=== PATIENT | male | born 1960 | race African-American/Black ===

== ENCOUNTER 2021-03-17 16:59 | Inpatient (IN) | payer OTHER ==
[2021-03-17 17:28] VITALS: BMI 29.2
[2021-03-17] MEDS ORDERED: PANTOPRAZOLE SODIUM 40 MG VIAL IVPUSH ONE (18:26)
[2021-03-17] MEDS ORDERED: ONDANSETRON 4 MG/2 ML VIAL IVPUSH ONE (18:27)
[2021-03-17] MEDS ORDERED: SODIUM CHLORIDE 0.9% 500 ML INFUS.BAG IV ONE (18:27)
[2021-03-17] MEDS ORDERED: ONDANSETRON 4 MG/2 ML VIAL ONE (18:33)
[2021-03-17] MEDS ORDERED: PANTOPRAZOLE SODIUM 40 MG VIAL ONE (18:33)
[2021-03-17 18:56] LABS: BASO % 0.9 % (0-2.0); HEMOGLOBIN 14.6 GM/dL (11.7-16.9); LYMPH % 28.1 % (8-40); MCH 27.6 pg (25.7-33.7); MCHC 32.5 g/dl (32.0-35.9); MEAN CELL VOLUME 84.8 fl (80-96); MEAN PLT VOLUME 9.5 fl (7.5-11.1); MONO % 4.9 % (3.8-10.2); NEUT % 63.1 % (42.8-82.8); PLATELET COUNT 255 10^3/uL (134-434); RDW 13.5 % (11.9-15.9); WHITE BLOOD COUNT 5.7 K/mm3 (4.0-10.0)
[2021-03-17 18:57] LABS: CHLORIDE 108 mmol/L (98-107); SODIUM 143 mmol/L (136-145)
[2021-03-17 19:00] LABS: ALBUMIN 3.6 g/dl (3.4-5.0); ANION GAP 7 MMOL/L (8-16); BLOOD UREA NITROGEN 17.2 mg/dL (7-18); CO2 28 mmol/L (21-32); GLUCOSE,RANDOM 90 mg/dL (74-106); LIPASE 55 U/L (73-393); MAGNESIUM 2.3 mg/dL (1.8-2.4)
[2021-03-17 19:02] LABS: PROTHROMBIN TIME (PATIENT) 11.2 SEC (9.7-13.0)
[2021-03-17 19:03] LABS: CREATININE 1.4 mg/dL (0.55-1.3); SGOT/AST 19 U/L (15-37); SGPT/ALT 29 U/L (13-61)
[2021-03-17 19:04] LABS: BILIRUBIN,TOTAL 0.2 mg/dL (0.2-1); TOT PROT 7.8 g/dl (6.4-8.2)
[2021-03-17 19:05] LABS: ACTIVATED PTT 26.1 SECONDS (25.2-36.5)
[2021-03-17 19:06] LABS: ALK PHOS 71 U/L (45-117)
[2021-03-17] MEDS ORDERED: ONDANSETRON 4 MG/2 ML VIAL IVPUSH PRN (21:33)
[2021-03-17] MEDS ORDERED: ALBUTEROL SO4 2.5/IPRATROPIUM 0.5 INH SOL 3 ML VIAL.NEB. NEB PRN (21:53)
[2021-03-17] MEDS ORDERED: ATORVASTATIN CA 20 MG TABLET (FP) ONE (22:05)
[2021-03-17] MEDS: SODIUM CHLORIDE 1,000 ML IV SCH (22:11)
[2021-03-17] MEDS: ATORVASTATIN CA 20 MG TABLET (FP) PO SCH (22:11)
[2021-03-18 06:34] LABS: URINE APPEARANCE CLEAR; URINE BILIRUBIN NEGATIVE (NEGATIVE); URINE COLOR YELLOW; URINE GLUCOSE (UA) NEGATIVE (NEGATIVE); URINE KETONE NEGATIVE (NEGATIVE); URINE LEUK ESTERASE NEGATIVE (NEGATIVE); URINE NITRITE NEGATIVE (NEGATIVE); URINE PROTEIN NEGATIVE (NEGATIVE)
[2021-03-18 08:55] LABS: HEMATOCRIT 42.7 % (35.4-49); MCH 28.1 pg (25.7-33.7); MCHC 32.8 g/dl (32.0-35.9); MEAN CELL VOLUME 85.6 fl (80-96); MEAN PLT VOLUME 9.3 fl (7.5-11.1); PLATELET COUNT 246 10^3/uL (134-434); RBC 4.99 M/mm3 (4.00-5.60); RDW 14.2 % (11.9-15.9); WHITE BLOOD COUNT 7.9 K/mm3 (4.0-10.0)
[2021-03-18 09:04] LABS: INR 1.03 (0.83-1.09); PROTHROMBIN TIME (PATIENT) 12.1 SEC (9.7-13.0)
[2021-03-18 09:29] LABS: CALCIUM 8.5 mg/dL (8.5-10.1)
[2021-03-18 09:30] LABS: BLOOD UREA NITROGEN 16.6 mg/dL (7-18); MAGNESIUM 2.3 mg/dL (1.8-2.4)
[2021-03-18 09:33] LABS: CREATININE 1.3 mg/dL (0.55-1.3)
[2021-03-18] MEDS ORDERED: FLU VACC QS2021-22(6MOS UP)/PF 60 MCG/0.5 ML SYRINGE IM ONE (10:00)
[2021-03-18] MEDS ORDERED: LISINOPRIL 20 MG TABLET PO SCH (10:00)
[2021-03-18] MEDS ORDERED: DOLUTEGRAVIR SODIUM 50 MG TABLET (NON-FORMULARY) PO SCH (10:00)
[2021-03-18] MEDS ORDERED: PANTOPRAZOLE SODIUM 40 MG VIAL IVPB SCH (10:00)
[2021-03-18] MEDS ORDERED: PANTOPRAZOLE SODIUM 40 MG in SODIUM CHLORIDE 100 ML IVPB SCH (10:00)
[2021-03-18] MEDS ORDERED: RILPIVIRINE HCL 25 MG TABLET PO SCH (10:00)
[2021-03-18] MEDS ORDERED: PATIENT'S OWN MEDICATION (NON-FORMULARY) (Dolutegravir/Rilpivirine [Juluca 50-25 Mg Tablet PO SCH (10:00)
[2021-03-18] MEDS: MENTHOL/PHENOL 1 EACH UD MM PRN ×2 (12:28→17:43)
[2021-03-18] MEDS: PANTOPRAZOLE SODIUM 40 MG VIAL IVPB SCH ×2 (16:17→21:15)
[2021-03-18] MEDS: SODIUM CHLORIDE 1,000 ML IV SCH ×2 (16:17→21:19)
[2021-03-18] MEDS ORDERED: PT OWN MED DRAWER 7, Y5N ONE (17:41)
[2021-03-18] MEDS: LISINOPRIL 20 MG TABLET PO SCH (17:43)
[2021-03-18] MEDS: ATORVASTATIN CA 20 MG TABLET (FP) PO SCH (21:14)
[2021-03-19] MEDS: SODIUM CHLORIDE 1,000 ML IV SCH (02:38)
[2021-03-19] MEDS: LISINOPRIL 20 MG TABLET PO SCH (08:59)
[2021-03-19] MEDS: PANTOPRAZOLE SODIUM 40 MG VIAL IVPB SCH (09:08)
[2021-03-19 09:13] LABS: BASO % 0.9 % (0-2.0); EOS % 5.6 % (0-4.5); HEMATOCRIT 42.2 % (35.4-49); LYMPH % 29.3 % (8-40); MCH 28.4 pg (25.7-33.7); MCHC 33.1 g/dl (32.0-35.9); MEAN CELL VOLUME 85.9 fl (80-96); MEAN PLT VOLUME 9.1 fl (7.5-11.1); MONO % 7.2 % (3.8-10.2); PLATELET COUNT 220 10^3/uL (134-434); RBC 4.92 M/mm3 (4.00-5.60); RDW 13.3 % (11.9-15.9); WHITE BLOOD COUNT 4.7 K/mm3 (4.0-10.0)
[2021-03-19] MEDS ORDERED: PANTOPRAZOLE SODIUM 40 MG VIAL IVPUSH SCH (09:13)
[2021-03-19 09:31] LABS: INR 1.11 (0.83-1.09); PROTHROMBIN TIME (PATIENT) 12.4 SEC (9.7-13.0)
[2021-03-19 09:36] LABS: CALCIUM 8.4 mg/dL (8.5-10.1)
[2021-03-19 09:37] LABS: ALBUMIN 3.2 g/dl (3.4-5.0); BLOOD UREA NITROGEN 9.9 mg/dL (7-18); MAGNESIUM 2.3 mg/dL (1.8-2.4)
[2021-03-19 09:40] LABS: CREATININE 1.2 mg/dL (0.55-1.3)
[2021-03-19 09:41] LABS: BILIRUBIN,TOTAL 0.8 mg/dL (0.2-1)
[2021-03-19 09:42] LABS: TOT PROT 6.8 g/dl (6.4-8.2)
[2021-03-19] MEDS ORDERED: PT OWN MED DRAWER 7, Y5N ONE (13:20)
[2021-03-19] MEDS ORDERED: LISINOPRIL 20 MG TABLET PO ONE (18:42)
[2021-03-19] MEDS: ATORVASTATIN CA 20 MG TABLET (FP) PO SCH (21:56)
[2021-03-19] MEDS: MENTHOL/PHENOL 1 EACH UD MM PRN (22:50)
[2021-03-20 05:32] VITALS: BP 131/84; PULSE 63; TEMP 98.6
[2021-03-20] MEDS: SODIUM CHLORIDE 1,000 ML IV SCH ×2 (07:20→10:34)
[2021-03-20 08:46] LABS: BASO % 1.2 % (0-2.0); EOS % 3.2 % (0-4.5); HEMATOCRIT 40.4 % (35.4-49); HEMOGLOBIN 13.4 GM/dL (11.7-16.9); LYMPH % 26.4 % (8-40); MCH 28.2 pg (25.7-33.7); MCHC 33.2 g/dl (32.0-35.9); MEAN CELL VOLUME 84.8 fl (80-96); MEAN PLT VOLUME 9.4 fl (7.5-11.1); MONO % 7.9 % (3.8-10.2); NEUT % 61.3 % (42.8-82.8); PLATELET COUNT 218 10^3/uL (134-434); RBC 4.76 M/mm3 (4.00-5.60); RDW 13.2 % (11.9-15.9); WHITE BLOOD COUNT 5.8 K/mm3 (4.0-10.0)
[2021-03-20 08:48] LABS: INR 1.13 (0.83-1.09); PROTHROMBIN TIME (PATIENT) 13.2 SEC (9.7-13.0)
[2021-03-20] MEDS: LISINOPRIL 20 MG TABLET PO SCH (09:01)
[2021-03-20 09:32] LABS: ALBUMIN 3.3 g/dl (3.4-5.0); BLOOD UREA NITROGEN 9.1 mg/dL (7-18); CALCIUM 8.6 mg/dL (8.5-10.1); MAGNESIUM 2.4 mg/dL (1.8-2.4)
[2021-03-20 09:36] LABS: CREATININE 1.1 mg/dL (0.55-1.3)
[2021-03-20 09:37] LABS: BILIRUBIN,TOTAL 0.6 mg/dL (0.2-1); TOT PROT 6.8 g/dl (6.4-8.2)
[2021-03-20] MEDS ORDERED: PANTOPRAZOLE 40 MG TABLET PO SCH (10:00)
[2021-03-20] MEDS ORDERED: FAMOTIDINE 20 MG TABLET PO SCH (22:00)
== END 2021-03-20 13:44 | disposition home or self-care (01) | DRG 379 ==
LOC: JER 16:59 → JERBED 19:35 → J8W 23:25
PROVIDERS: ATTEND Nurse Practitioner Acute Care
PROC: 0W3P8ZZ Control Bleeding in Gastrointestinal Tract, Via Natural or Artificial Opening Endoscopic (ICD-10-PCS; 2021-03-19)
PROC: 0DB78ZX Excision of Stomach, Pylorus, Via Natural or Artificial Opening Endoscopic, Diagnostic (ICD-10-PCS; principal; 2021-03-19 13:00)
DX: K92.2 Gastrointestinal hemorrhage, unspecified (principal); K92.0 Hematemesis; Z21 Asymptomatic human immunodeficiency virus [HIV] infection status; E78.5 Hyperlipidemia, unspecified; B96.81 Helicobacter pylori [H. pylori] as the cause of diseases classified elsewhere; F10.20 Alcohol dependence, uncomplicated; I10 Essential (primary) hypertension; K22.89 Other specified disease of esophagus
CPT/HCPCS: 36415; 71045-TC-FY; 80048; 80053; 81003; 82272; 82550; 82553; 83690; 83735; 84484; 85025; 85027; 85610; 85730; 86850; 86900; 86901; 87070; 88305-TC; 90686; 93005; 93010; 99285-25; C9803; G0008; U0003; U0005

== ENCOUNTER 2023-04-11 15:07 | Emergency (ER) | payer OTHER ==
[2023-04-11 15:13] VITALS: BP 122/82; PULSE 107; RESP 18; TEMP 97.3; BMI 31.4
[2023-04-11] MEDS ORDERED: diphenhydrAMINE HCL 12.5 MG/5 ML UNIT-DOSE CUPS PO ONE (16:26)
[2023-04-11] MEDS ORDERED: LIDOCAINE VISCOUS 2% ORAL/TOP 15 ML UNIT-DOSE CUP MM ONE (16:26)
[2023-04-11] MEDS ORDERED: NYSTATIN 500,000 UNITS/5 ML SUSPENSION PO ONE (16:27)
[2023-04-11] MEDS ORDERED: diphenhydrAMINE HCL 12.5 MG/5 ML UNIT-DOSE CUPS ONE (16:30)
[2023-04-11] MEDS ORDERED: LIDOCAINE VISCOUS 2% ORAL/TOP 15 ML UNIT-DOSE CUP ONE (16:32)
== END 2023-04-11 17:31 | disposition home or self-care (01) ==
LOC: JERFT 15:07
DX: B37.0 Candidal stomatitis (principal); K12.0 Recurrent oral aphthae
CPT/HCPCS: 99283-25